=== PATIENT | male | born 1955 | race Caucasian/White ===

== ENCOUNTER 2019-05-13 07:32 | Day surgery (SDC) | payer MEDICAID ==
[~2019-05-13] VITALS: Ht 188 cm; Wt 78.0 kg
[~2019-05-13 07:32] MED LIST: ALBU8.5H8 IH; ASPI-556 PO; ATOR40TA28 PO; BACL10TA PO; CITA-106 PO; DSS100 PO; FERR-89 PO; GABA-533 PO; GABA-771 PO; HYDR-4455 PO; IPRAHFA IH; LEVO112T4 PO; LOSA25TA41 PO; MELO-107 PO; METH500T7 PO; METO-558 PO; OMEP20 PO; ONDA4 PO; PRED20 PO; SODIUM CHLORIDE 0.9% 1,000 ML IV ONE
[2019-05-13] MEDS ORDERED: PROPOFOL 1% 20 ML VIAL IVP ONE (12:00)
[2019-05-13] MEDS ORDERED: LIDOCAINE/PF 2% 5 ML VIAL INJ ONE (12:00)
== END 2019-05-13 10:30 | disposition home or self-care (01) ==
LOC: SURGERY 07:32
PROVIDERS: ATTEND Internal Medicine Gastroenterology
DX: K29.50 Unspecified chronic gastritis without bleeding (principal); K22.2 Esophageal obstruction; B18.2 Chronic viral hepatitis C; D64.9 Anemia, unspecified; Z86.73 Personal history of transient ischemic attack (TIA), and cerebral infarction without residual deficits; J44.9 Chronic obstructive pulmonary disease, unspecified; I10 Essential (primary) hypertension; E03.9 Hypothyroidism, unspecified; E11.9 Type 2 diabetes mellitus without complications; Z79.899 Other long term (current) drug therapy; Z79.82 Long term (current) use of aspirin; F17.210 Nicotine dependence, cigarettes, uncomplicated; Z98.890 Other specified postprocedural states
CPT/HCPCS: 43239; 88305; 88312; 88313; C1769; J2704; J3490; J7030